=== PATIENT | male | born 2000 | race African-American/Black ===

== ENCOUNTER 2018-03-23 21:12 | Emergency (ER) | payer SELFPAY ==
[~2018-03-23] VITALS: Ht 172.7 cm; Wt 64.9 kg
[2018-03-23 21:15] VITALS: BP 140/85
--- NOTE | 2018-03-23 21:49 | NUR ---
PT REFUSED TO GO TO ER BED 1 AND WALKED OUT OF THE ER STATING "I DO NOT WANT TO BE SEEN AND I DO NOT WANT TO GO TO A MENTAL [facility]". PT AAOX4. PT WALKED OUT OF ED WITH STEADY GAIT NOTED.
--- NOTE | 2018-03-23 21:58 | NUR ---
PT BACK TO ED AND AGREES TO BE SEEN BY ER PHYSICIAN. PT RESTING IN BED WITH FATHER BEDSIDE. NO S/S OF ACUTE DISTRESS NOTED.
[2018-03-23] MEDS ORDERED: OLANZAPINE 10 MG VIAL IM ONE ×2 (22:13→22:30)
[2018-03-23] MEDS ORDERED: LORAZEPAM 1 MG TABLET ONE (22:14)
[2018-03-23] MEDS ORDERED: LORAZEPAM 1 MG TABLET PO ONE (22:30)
== END 2018-03-23 22:36 | disposition home or self-care (01) ==
LOC: ER 21:15
DX: Z76.0 Encounter for issue of repeat prescription (principal); F25.9 Schizoaffective disorder, unspecified; F19.10 Other psychoactive substance abuse, uncomplicated; F10.10 Alcohol abuse, uncomplicated; F17.200 Nicotine dependence, unspecified, uncomplicated; F41.9 Anxiety disorder, unspecified; Y90.9 Presence of alcohol in blood, level not specified
CPT/HCPCS: A4606; J3490; Z7610